=== PATIENT | female | born 1965 | race African-American/Black ===

== ENCOUNTER 2018-01-31 16:53 | Emergency (ER) | payer OTHER ==
[~2018-01-31] VITALS: Ht 165.1 cm; Wt 98.9 kg
[2018-01-31 16:54] VITALS: BP 138/88
[2018-01-31] MEDS ORDERED: IBUPROFEN 800800 M1 PO (17:34)
[2018-01-31] MEDS ORDERED: LISINOPRIL-HCT1 EACH PO (17:34)
[2018-01-31] MEDS ORDERED: MOBIC7.5 MG PO (18:16)
== END 2018-01-31 18:25 | disposition home or self-care (01) ==
LOC: ER 16:53
DX: G56.02 Carpal tunnel syndrome, left upper limb (principal); I10 Essential (primary) hypertension